=== PATIENT | male | born 1955 | race Caucasian/White ===

== ENCOUNTER 2019-09-03 11:29 | Inpatient (IN) | payer OTHER ==
[~2019-09-03] VITALS: Ht 175.3 cm; Wt 73.5 kg
[2019-09-03] VITALS (14 sets, daily range): BP systolic 88–127; BP diastolic 45–80
--- NOTE | 2019-09-03 11:37 | NUR ---
PT BIBRA 86 FROM THE BUS STOP C/O ETOH, NOTED FOREHEAD AND KNEE ABRASIONS, PT IS AAOX1, NOT IN RESPIRATORY DISTRESS, HOOKED TO MONITOR, KEPT RESTED AND COMFORTABLE,WILL CONTINUE TO MONITOR.
[2019-09-03] MEDS ORDERED: IV NS 0.9% 1,000 ML BAG IV ONE (12:00)
[2019-09-03 12:12] LABS: BASOPHILS # (AUTO) 0.2 /CMM (0.0-0.2); BASOPHILS % (AUTO) 1.6 % (0.0-2.0); EOSINOPHILS % (AUTO) 4.2 % (0.0-6.0); HEMATOCRIT 32 % (39-51); HEMOGLOBIN 10.7 g/dL (13.5-17.5); LYMPHOCYTES # (AUTO) 1.6 /CMM (0.8-4.8); LYMPHOCYTES % (AUTO) 15.8 % (20.0-44.0); MEAN CORPUSCULAR HGB CONC 34 g/dl (31.0-36.0); MEAN CORPUSCULAR VOLUME 108 fL (80-96); MONOCYTES # (AUTO) 0.9 /CMM (0.1-1.30); NEUTROPHILS # (AUTO) 7.1 /CMM (1.8-8.9); NEUTROPHILS % (AUTO) 69.4 % (43.0-81.0); PLATELET COUNT (AUTO) 436 /CMM (150-450); RED BLOOD CELL COUNT(AUTO) 2.95 MIL/uL (4.5-6.0); WHITE BLOOD COUNT (AUTO) 10.2 K/uL (4.3-11.0)
[2019-09-03 12:28] LABS: APPEARANCE,URINE Clear (CLEAR); BILIRUBIN,URINE Negative (NEGATIVE); BLOOD, URINE Trace-intact Ery/uL (NEGATIVE); COLOR,URINE Yellow (YELLOW); KETONES,URINE Negative (NEGATIVE); LEUKOCYTE ESTERASE ,URINE Negative (NEGATIVE); NITRITE, URINE Negative (NEGATIVE); PROTEIN,URINE Negative (NEGATIVE); UGLUCOSE Negative (NEGATIVE); UROBILINOGEN,URINE 0.2 EU/dL (0.2)
[2019-09-03 12:30] LABS: ALBUMIN 2.5 g/dL (3.4-5.0); BILIRUBIN,DIRECT 0.2 mg/dL (0.0-0.2); BILIRUBIN,TOTAL 0.2 mg/dL (0.2-1.0); CALCIUM, SERUM 8.6 mg/dL (8.5-10.1); CREATININE 0.7 mg/dL (0.6-1.3)
[2019-09-03 12:31] LABS: POTASSIUM 2.3 mmol/L (3.5-5.1); SALICYLATE 1.7 mg/dL (2.8-20.0)
[2019-09-03 12:40] LABS: BACTERIA,URINE Few /HPF (None Seen); RBC,URINE 0-2 /HPF (0-2); SQUAMOUS EPITHELIAL CELL,UR Few /HPF (None Seen); WBC,URINE 0-2 /HPF (0-3)
--- NOTE | 2019-09-03 12:50 | NUR ---
wheeled patient to CT.
--- NOTE | 2019-09-03 13:00 | NUR ---
patient came back from CT
--- NOTE | 2019-09-03 13:01 | NUR ---
connected to the monitor and pulse ox. Asleep, in no distress. Arousable.
[2019-09-03] MEDS ORDERED: IV PREMIX 0.45% NS + KCL 1,000 ML IV ONE (13:23)
[2019-09-03] MEDS ORDERED: LEVETIRACETAM (500MG) 500 MG in IV NS 0.9% 100 ML IV ONE (13:30)
--- NOTE | 2019-09-03 13:55 | NUR ---
called rn sup for [facility] bed waiting for assignment
--- NOTE | 2019-09-03 14:14 | NUR ---
called [facility] sup for ICU bed.
[2019-09-03] MEDS ORDERED: MAGNESIUM HYDROXIDE 30 ML UDC PO PRN (14:30)
[2019-09-03] MEDS ORDERED: MAG HYDROX/AL HYDROX/SIMETH 30 ML UDC PO PRN (14:30)
[2019-09-03] MEDS ORDERED: ONDANSETRON HCL/PF 4 MG/2 ML VIAL IVP PRN (14:30)
[2019-09-03] MEDS ORDERED: Folic acid 1 MG in IV D5W 50 ML IV SCH (14:30)
[2019-09-03] MEDS ORDERED: LABETALOL HCL IV 100MG VIAL IV ONE (14:30)
--- NOTE | 2019-09-03 14:31 | NUR ---
ICU 253
--- NOTE | 2019-09-03 14:49 | NUR ---
rerport given to Caroline RODRIGUEZ for frank.
[2019-09-03 15:05] LABS: CREATINE KINASE, TOTAL 143 U/L (39-308)
--- NOTE | 2019-09-03 15:30 | NUR ---
GRADER MEAT ADMITTING NOTES Rec'd report from Bran RODRIGUEZ. Pt admitted to ICU d/t ETOH intoxication & SDH, transferred via gurney. Pt A/O x 1, confused, drowsy. no SOB while on NC at 2lpm. SR on telemonitor. BP WNL. Afebrile. Wound photos taken & placed in the chart, wound consult ordered. IV line access on R AC G18 w/ 10/20 NS + 20meqs KCL x 200 cc/hr infusing well, RH G18 SL flushing well. Safety precaution in place w/ bed in lowest & locked pos. Call light placed w/in reach. Will cont to monitor & attend pt needs. Addendum: 09/03/19 at 1927 by RASHI VELASQUEZ RN 1927 Pt seen & examined by Dr. Day w/ orders to start on Keppra 500mg IV q12h.
[2019-09-03] MEDS: POTASSIUM CL. PREMIX PERIPHER. 50 ML IV SCH ×4 (15:40→18:47)
[2019-09-03] MEDS ORDERED: PIPERACILLIN /TAZOBACTAM 3.375 G in IV D5W 50 ML IV ONE (16:00)
[2019-09-03] MEDS: Folic acid 1 MG in IV D5W 50 ML IV SCH (16:02)
[2019-09-03] MEDS ORDERED: LABETALOL HCL IV 100MG VIAL IV PRN (16:30)
[2019-09-03] MEDS: Thiamine 100 MG in IV D5W 50 ML IV SCH (16:36)
[2019-09-03] MEDS: BLOOD SUGAR DIAGNOSTIC 1 EACH STRIP IN SCH ×4 (16:40→23:49)
[2019-09-03] MEDS: Z GUARD REMEDY 2 OZ OINT TP PRN (17:19)
[2019-09-03] MEDS: IV NS 0.9% 1,000 ML IV PRN (19:09)
--- NOTE | 2019-09-03 19:25 | NUR ---
ICU/RN NOTES PATIENT RECEIVED IN BED, RESTING COMFORTABLY AT THIS TIME, NO S/S OF ACUTE DISTRESS NOTED, BREATHING EVEN AND UNLABORED. NO SOB NOTED, PATIENT ON O2 2LPM VIA NC, SATURATION 98% AT THIS TIME, PATIENT ALERT AND ORIENTED X 1-2, DENIES ANY PAIN AT THIS TIME. IV SITES WITH NO S/S OF INFECTION, INFILTRATION, RUNNING WITH FLUIDS ORDERED, F/C IN PLACE, PATENT, DRAINING WELL WITH CLEAR YELLOW URINE. CLEAN AND DRY. SAFETY MAINTAINED, BED AT THE LOWEST LOCKED POSITION, CALL LIGHT WITHIN REACH, PATIENT ON TELE MONITORING WITH SINUS RHYTHM WITH BBB. WILL CONTINUE TO MONITOR PER PLAN OF CARE.
[2019-09-03] MEDS ORDERED: LEVETIRACETAM (500MG) 500 MG/5 ML VIAL IV ONE (20:32)
[2019-09-03] MEDS: LEVETIRACETAM (500MG) 500 MG in IV NS 0.9% 100 ML IV SCH (20:37)
[2019-09-03] MEDS: SIMVASTATIN 10 MG TABLET PO SCH (21:05)
--- NOTE | 2019-09-03 21:12 | NUR ---
LIPITOR NOT GIVEN DUE TO PATIENT NPO STATUS
--- NOTE | 2019-09-03 22:27 | NUR ---
MD MORROW MADE AWARE REGARDING PATIENT NIHSS SCORES WITH NO NEW ORDER AT THIS TIME.
[2019-09-03] MEDS: PIPERACILLIN /TAZOBACTAM 3.375 G in IV D5W 100 ML IV SCH (23:52)
[2019-09-04] VITALS (20 sets, daily range): BP systolic 100–150; BP diastolic 45–91
--- NOTE | 2019-09-04 01:37 | NUR ---
PATIENT IS AWAKE AND ALERT AND ORIENTED X2, ASKING FOR FOOD AT THIS TIME, PERFORMED NURSING SWALLOW EVAL USING ICE CHIPS AND THEN THIN LIQUID. , PATIENT OK TO SWALLOW. CALLED DR MORROW, RELAYED PATIENT CONDITION AND NURSING SWALLOW EVAL RESULTS, DR. MORROW WITH NEW ORDER FOR CARDIAC DIET. NOTED
[2019-09-04 04:24] LABS: BASOPHILS # (AUTO) 0.1 /CMM (0.0-0.2); EOSINOPHILS % (AUTO) 3.1 % (0.0-6.0); HEMATOCRIT 32 % (39-51); HEMOGLOBIN 10.8 g/dL (13.5-17.5); LYMPHOCYTES # (AUTO) 0.9 /CMM (0.8-4.8); LYMPHOCYTES % (AUTO) 6.7 % (20.0-44.0); MEAN CORPUSCULAR HGB CONC 34 g/dl (31.0-36.0); MEAN CORPUSCULAR VOLUME 107 fL (80-96); MONOCYTES % (AUTO) 7.4 % (2.0-12.0); NEUTROPHILS # (AUTO) 10.9 /CMM (1.8-8.9); NEUTROPHILS % (AUTO) 81.8 % (43.0-81.0); PLATELET COUNT (AUTO) 431 /CMM (150-450); RED BLOOD CELL COUNT(AUTO) 2.99 MIL/uL (4.5-6.0); WHITE BLOOD COUNT (AUTO) 13.4 K/uL (4.3-11.0)
[2019-09-04 05:04] LABS: CREATININE 0.6 mg/dL (0.6-1.3); MAGNESIUM 1.2 mg/dL (1.8-2.4); PHOSPHORUS 2.5 mg/dL (2.5-4.9)
[2019-09-04 05:17] LABS: THYROID STIMULATING HORMONE 1.146 uIU/mL (0.358-3.74)
--- NOTE | 2019-09-04 05:20 | NUR ---
LAB CALLED FOR CRITICAL LAB VALUE AT THIS TIME, POTASSIUM 2.7,PATIENT IN NO ACUTE DISTRESS, BREATHING EVEN AND UNLABORED. WILL CONTINUE TO MONITOR, CALLED DR. MORROW AT THIS TIME,
[2019-09-04 05:27] LABS: POTASSIUM 2.7 mmol/L (3.5-5.1)
--- NOTE | 2019-09-04 05:33 | NUR ---
DR. MORROW CALLED BACK AT THIS TIME, RELAYED PATIENT CRITICAL LAB RESULT AND CURRENT CONDITION, VITAL SIGNS WITH NEW ORDER TO GIVE PATIENT POTASSIUM 80MEQ PO X ONE DOSE. NOTED AND CARRIED OUT.
[2019-09-04] MEDS ORDERED: POTASSIUM CHLORIDE 20 MEQ TAB.PRT.SR PO ONE (06:00)
[2019-09-04] MEDS: BLOOD SUGAR DIAGNOSTIC 1 EACH STRIP IN SCH ×6 (06:30→22:01)
--- NOTE | 2019-09-04 06:49 | NUR ---
ICU/RN NOTES PATIENT REMAINED IN BED, RESTING COMFORTABLY AT THIS TIME, NO S/S OF ACUTE DISTRESS NOTED, BREATHING EVEN AND UNLABORED. NO SOB NOTED, PATIENT ON O2 2LPM VIA NC, SATURATION 92% AT THIS TIME, PATIENT IS GETTING MORE ALERT ORIENTED X 2-3 NOW, DENIES ANY PAIN AT THIS TIME. IV SITES WITH NO S/S OF INFECTION, INFILTRATION, RUNNING WITH FLUIDS ORDERED, F/C IN PLACE, PATENT, DRAINING WELL WITH CLEAR YELLOW URINE. ALL DUE MEDS GIVEN ORDERED, TOLERATED WELL. CLEAN AND DRY. SAFETY MAINTAINED, BED AT THE LOWEST LOCKED POSITION, CALL LIGHT WITHIN REACH, PATIENT ON TELE MONITORING WITH SINUS RHYTHM . WILL ENDORSE TO AM SHIFT NURSE FOR KRISTINE.
--- NOTE | 2019-09-04 07:10 | NUR ---
DANCE INSTRUCTOR INITIAL NOTES Rec'd pt on bed, more awake, A/O x 2. On NC at 2lpm, denies SOB. SR on telemonitor. Has R AC G18 w/ NS x 75 cc/hr & RH G18 SL. Has FC draining to BSB w/ yellowish UOP. Safety precaution in place w/ bed in lowest & locked pos. Call light placed w/in reach. Will cont to monitor & attend pt needs.
[2019-09-04] MEDS: PIPERACILLIN /TAZOBACTAM 3.375 G in IV D5W 100 ML IV SCH ×2 (07:53→17:26)
[2019-09-04] MEDS: PANTOPRAZOLE 40 MG VIAL IV SCH (08:02)
[2019-09-04] MEDS: NICOTINE PATCH (21MG) 21 MG PATCH.TD24 TD SCH (08:02)
[2019-09-04] MEDS: POTASSIUM CHLORIDE 20 MEQ TAB.PRT.SR PO SCH ×2 (08:02→09:03)
[2019-09-04] MEDS: Z GUARD REMEDY 2 OZ OINT TP PRN (08:03)
[2019-09-04] MEDS: IV NS 0.9% 1,000 ML IV PRN ×2 (08:58→22:01)
[2019-09-04] MEDS: LEVETIRACETAM (500MG) 500 MG in IV NS 0.9% 100 ML IV SCH ×2 (09:03→21:03)
--- NOTE | 2019-09-04 11:30 | NUR ---
Pt seen & examined by Molly FLOREZ, carried out new orders. VIKKI made aware re: T 100.4.
[2019-09-04] MEDS: Magnesium 1GM/D5W 100ML PREMIX 100 ML IV SCH ×4 (12:08→15:13)
[2019-09-04] MEDS: ACETAMINOPHEN 325 MG TABLET PO PRN (12:16)
--- NOTE | 2019-09-04 14:53 | NUR ---
Report given to Angelica RODRIGUEZ for KRISTINE. Pt will be transferred to [facility].
--- NOTE | 2019-09-04 14:53 | NUR ---
ICU/MACHINE TOOL TECHNICIAN INSTRUCTOR OF CARE REPORT RECEIVED FROM NURSE RASHI PT WAS ENDORSED TO CONTINUE CARE.
[2019-09-04] MEDS: Folic acid 1 MG in IV D5W 50 ML IV SCH (15:22)
--- NOTE | 2019-09-04 16:00 | NUR ---
SPA COORDINATORCLINICAL RESEARCH ADMINISTRATOR NOTES Pt transferred to [facility] rm 119/1 as ordered. Pt remains A/O x 2, not in any distress, no neurological changes noted. No SOB while on NC at 2lpm. Pt informed need sputum sample for respiratory culture, provided w/ sterile cup. IV line access kept patent & intact w/ no s/sx of infection/infiltration. All belongings sent w/ pt, nothing is missing. No new skin issues noted. Safety precaution kept in place at all times. Pt transferred to [facility] via bed via ACLS protocol. No concerns/issues identified during transfer.
[2019-09-04] MEDS: Thiamine 100 MG in IV D5W 50 ML IV SCH (16:43)
--- NOTE | 2019-09-04 19:25 | NUR ---
TD/RN AM SHIFT END NOTES ALL NEEDS MET. NO ACUTE CHANGE OF CONDITION NOTED SINCE PT WAS ENDORSED TO CONTINUE CARE LATE THIS AFTERNOON. PT ENDORSED TO PM NURSE TO CONTINUE CARE. CL WITHIN REACHED AND SAFETY MAINTAINED.
[2019-09-04] MEDS: SIMVASTATIN 10 MG TABLET PO SCH (21:03)
[2019-09-04] MEDS: LORAZEPAM INJ 2 MG/ML VIAL IV PRN (21:04)
[2019-09-05] VITALS (9 sets, daily range): BP systolic 126–154; BP diastolic 67–94
[2019-09-05] MEDS: PIPERACILLIN /TAZOBACTAM 3.375 G in IV D5W 100 ML IV SCH ×4 (00:01→23:23)
[2019-09-05 07:01] LABS: BASOPHILS # (AUTO) 0.1 /CMM (0.0-0.2); BASOPHILS % (AUTO) 0.8 % (0.0-2.0); EOSINOPHILS % (AUTO) 6.1 % (0.0-6.0); HEMATOCRIT 32 % (39-51); HEMOGLOBIN 10.8 g/dL (13.5-17.5); LYMPHOCYTES # (AUTO) 1.4 /CMM (0.8-4.8); LYMPHOCYTES % (AUTO) 10.4 % (20.0-44.0); MEAN CORPUSCULAR HGB CONC 34 g/dl (31.0-36.0); MEAN CORPUSCULAR VOLUME 106 fL (80-96); MONOCYTES # (AUTO) 0.9 /CMM (0.1-1.30); MONOCYTES % (AUTO) 6.5 % (2.0-12.0); NEUTROPHILS # (AUTO) 10.5 /CMM (1.8-8.9); NEUTROPHILS % (AUTO) 76.2 % (43.0-81.0); PLATELET COUNT (AUTO) 373 /CMM (150-450); RED BLOOD CELL COUNT(AUTO) 3.03 MIL/uL (4.5-6.0); WHITE BLOOD COUNT (AUTO) 13.8 K/uL (4.3-11.0)
[2019-09-05 07:11] LABS: CALCIUM, SERUM 8.5 mg/dL (8.5-10.1); CREATININE 0.7 mg/dL (0.6-1.3); MAGNESIUM 1.7 mg/dL (1.8-2.4); PHOSPHORUS 2.5 mg/dL (2.5-4.9); POTASSIUM 3.9 mmol/L (3.5-5.1)
--- NOTE | 2019-09-05 07:15 | NUR ---
RN note: Received patient in bed. Nurse rounds completed. Patient alert and oriented without complaints of pain. Safety measures in place. Call light within reach. IV site patent, clean, dry and intact.
[2019-09-05] MEDS: BLOOD SUGAR DIAGNOSTIC 1 EACH STRIP IN SCH ×4 (08:14→21:53)
[2019-09-05] MEDS: LEVETIRACETAM (500MG) 500 MG in IV NS 0.9% 100 ML IV SCH (08:28)
--- NOTE | 2019-09-05 08:29 | NUR ---
WOUND CARE CONSULT: PT PRESENTS WITH RT KNEE ABRASION WHICH IS TENDER, DRY ABRASIONS TO FOREHEAD, FACE AND RT ELBOW, LOWER LEG, PRESENT ON ADMISSION. RECOMMENDATIONS MADE FOR WOUND CARE. DISCUSSED WITH NURSING STAFF. PT REFUSED TO TURN FOR FULL SKIN ASSESSMENT OF BACK AND BUTTOCKS. PT CONTINENT AT THIS TIME WITH ISHAN. CURRENT CHRISTINE SCORE IS 18. WILL SEE PRN. EDMONDS IN AGREEMENT WITH PLAN OF CARE. Addendum: 09/05/19 at 0830 by AIDA GUO WNDNU Amended: Links added.
[2019-09-05] MEDS: PANTOPRAZOLE 40 MG VIAL IV SCH (08:35)
[2019-09-05] MEDS: NICOTINE PATCH (21MG) 21 MG PATCH.TD24 TD SCH (08:42)
[2019-09-05] MEDS: NEOMY SULF/BACITRAC ZN/POLY 15 GM TUBE TP SCH ×2 (09:16→17:06)
--- NOTE | 2019-09-05 12:02 | NUR ---
Social service consult requested by VIKKI Kwan for homelessness and ETOH. Pt. is a 60 year old male who was admitted to [facility] for subdural Hemorrhage. Pt. was brought in by ambulance from the bus stop with concern for alcohol intoxication. SW met with the pt. bedside. Pt. is alert and oriented x 4. Pt. has dry abrasions on his face and forehead. Pt. appears disheveled. Pt. is homeless and has been for the past 14 years. Pt. receives SSI but did not disclose as to how much he gets per month. Pt. sleeps in a park in [place]. SW offered pt. fdc placement, however pt. declined. Pt. stated, he is going to [place] once discharge because, " I have too many enemies here, I have turned in too many drug dealers." Pt. 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 Pt. is an alcoholic and has been drinking for the past 10 years. Pt's drink of choice is vodka. Pt. drinks 1/2 gallon of vodka or more daily, depending on how much money he has. Pt. states, the alcohol " calms me down." Pt. is requesting for a bus pass which will be provided to him upon discharge. Pt. was provided with the following homeless fdc/resources: [facility] located at [address] [place] [address] ; [facility], [address] ; [facility], [address] [facility] ; [facility] Homeless Resource Directory which includes food stamps, transitional housing, showers and hot meals etc; Mental Health clinics such as [facility] ; [facility] ; Health clinics;[facility] and Alcohol treatment centers such as [facility], ; [facility] Substance Abuse Hotline and [facility] . Homeless Patient waiver form was placed in the chart for pt. to sign upon discharge. Pt's MICHAEL Orozco was notified. Pt. will be provided a TAP card upon discharge.
[2019-09-05] MEDS: Magnesium 1GM/D5W 100ML PREMIX 100 ML IV SCH ×2 (12:03→13:18)
[2019-09-05] MEDS: IV NS 0.9% 1,000 ML IV PRN (12:04)
[2019-09-05] MEDS: FOLIC ACID 1 MG TABLET PO SCH (17:15)
[2019-09-05] MEDS: THIAMINE HCL 100 MG TABLET PO SCH (17:15)
--- NOTE | 2019-09-05 19:30 | NUR ---
RN NOTES, PATIENT IN BED, AWAKE A/O X4 ABLE T VERBALIZED NEEDS AND CONCERNS, NO SOB/ACUTE DISTRESS NOTED, AT THIS TIME, ON O2 2LPM VIA NC, BREATHING EVEN AND UNLABORED, SINUS RHYTHM ON TELE MONITOR HR IN 80S, IV SITES IN LEFT HAND AND LEFT AC PATENT AND INTACT, NO S/S OF INFECTION OR INFILTRATION, IV FLUIDS INFUSING WELL AND PATIENT TOLERATED WELL, F/C IN PLACE, PATENCY INTACT, DRAINING CLEAR YELLOW URINE BY GRAVITY, CLEAN AND DRY, ALL SAFETY MEASURES IN PLACED, ASPIRATION AD SEIZURE PRECAUTIONS IN PL PACED, BED AT THE LOWEST LOCKED POSITION, CALL LIGHT WITHIN REACH, WILL CONTINUE TO MONITOR CLOSELY.
[2019-09-05] MEDS: SIMVASTATIN 10 MG TABLET PO SCH (21:26)
[2019-09-05] MEDS: LEVETIRACETAM (250 MG) 250 MG TABLET PO SCH (21:26)
[2019-09-06] VITALS (8 sets, daily range): BP systolic 121–159; BP diastolic 69–97
[2019-09-06] MEDS: LORAZEPAM INJ 2 MG/ML VIAL IV PRN (03:54)
[2019-09-06] MEDS: IV NS 0.9% 1,000 ML IV PRN (06:05)
--- NOTE | 2019-09-06 06:45 | NUR ---
RN NOTES, PATIENT ASLEEP AT THIS TIME, BUT AROUSES TO VERBAL STIMULI, AT 2LPM VIA NC AT THIS TIME, WITH OPTIMAL O2 SAT LEVEL, NO SOB/ACUTE DISTRESS NOTED AT THIS TIME, SLEEP WELL MOST OF THE NIGHT, RESPOND TO NAME, NO CHANGE IN LOC DURING THE NIGHT, IDENTIFY HIMSELF, DATE OF , ON IVF AT 150ML/HR, BOTH RIGHT HAND AND RIGHT AC IV ACCESS PATENT AND INTACT, NO S/S OF INFILTRATION NOTED, NO SIGNIFICANT CHANGE IN CONDITION DURING THE NIGHT, BED YAIR IVF AT 150ML/HR, BOTH RIGHT ND LEFT AC IV ACCESS PATENT AND INTACT, NO S/S OF INFILTRATION NOTED, BED LOCKED AND LOW POSITION, BILATERAL S/R OF BED IN PLACED AD PADDED FOR SEIZURE PRECAUTIONS, ON ASPIRATION PRECAUTIONS WELL, ATIVAN ADMINISTERED QUALITY ASSURANCE CONSULTANT, PATIENT STATE FEELING ANXIOUS AND NOT SMOKING AND DRINKING FOR DAYS, AND BP ELEVATED, AFTER MEDICATION PATIENT CALM AND SLEEPING, AND BP GOT LOWER WELL, CALL LIGHT W/I REACH, WILL ENDORSE CONTINUITY OF CARE TO ONCOMING NURSE.
[2019-09-06 07:07] LABS: BASOPHILS # (AUTO) 0.2 /CMM (0.0-0.2); BASOPHILS % (AUTO) 1.2 % (0.0-2.0); EOSINOPHILS % (AUTO) 10.6 % (0.0-6.0); HEMATOCRIT 34 % (39-51); HEMOGLOBIN 11.2 g/dL (13.5-17.5); LYMPHOCYTES # (AUTO) 1.2 /CMM (0.8-4.8); MEAN CORPUSCULAR HGB CONC 33 g/dl (31.0-36.0); MEAN CORPUSCULAR VOLUME 107 fL (80-96); MONOCYTES # (AUTO) 0.8 /CMM (0.1-1.30); MONOCYTES % (AUTO) 6.5 % (2.0-12.0); NEUTROPHILS # (AUTO) 8.8 /CMM (1.8-8.9); NEUTROPHILS % (AUTO) 71.7 % (43.0-81.0); PLATELET COUNT (AUTO) 347 /CMM (150-450); RED BLOOD CELL COUNT(AUTO) 3.12 MIL/uL (4.5-6.0); WHITE BLOOD COUNT (AUTO) 12.3 K/uL (4.3-11.0)
[2019-09-06 07:31] LABS: CALCIUM, SERUM 8.5 mg/dL (8.5-10.1); CREATININE 0.6 mg/dL (0.6-1.3); MAGNESIUM 1.7 mg/dL (1.8-2.4); PHOSPHORUS 3.7 mg/dL (2.5-4.9); POTASSIUM 3.7 mmol/L (3.5-5.1)
[2019-09-06 07:56] LABS: EOSINOPHILS % (MANUAL) 11 % (0-4); LYMPHOCYTES % (MANUAL) 10 % (16-48); MONOCYTES % (MANUAL) 3 % (0-11.0); NEUTROPHILS % (MANUAL) 76 (42-76)
--- NOTE | 2019-09-06 08:00 | NUR ---
SUPERINTENDENT DISTRIBUTION NOTES RECEIVED PATIENT ON BED, SLEEPING BUT EASILY AROUSABLE TO VERBAL AND TACTILE STIMULI. ON TELE MONITOR 62 SR WITH PAC HR 82. F/C BY GRAVITY , YELLOW COLOR URINE. HAVING BREAKFAST FED BY NURSING STAFF. RIGHT AC HEPLOCK INTACT, FLUSHED WELL, ON IV FLUIDS ORDERED, BED ON LOCK AND LOWEST POSITION, SAFETY PRECAUTION IN PLACE, PADDED SIDE RAILS, DR. LARSEN DIRECTOR MEDICAL SCIENCE ON BED SIDE, AWARE OF PATIENT CONDITION, NO SOB. NEURO CHECK COMPLETED. WILL CONTINUE TO MONITOR
[2019-09-06] MEDS: FOLIC ACID 1 MG TABLET PO SCH (08:29)
[2019-09-06] MEDS: NICOTINE PATCH (21MG) 21 MG PATCH.TD24 TD SCH (08:29)
[2019-09-06] MEDS: THIAMINE HCL 100 MG TABLET PO SCH (08:30)
[2019-09-06] MEDS: PANTOPRAZOLE 40 MG VIAL IV SCH (08:30)
[2019-09-06] MEDS: LEVETIRACETAM (250 MG) 250 MG TABLET PO SCH ×2 (08:31→21:27)
[2019-09-06] MEDS: PIPERACILLIN /TAZOBACTAM 3.375 G in IV D5W 100 ML IV SCH ×2 (08:35→16:07)
[2019-09-06] MEDS: BLOOD SUGAR DIAGNOSTIC 1 EACH STRIP IN SCH ×4 (08:35→21:34)
[2019-09-06] MEDS: NEOMY SULF/BACITRAC ZN/POLY 15 GM TUBE TP SCH ×2 (08:43→16:01)
[2019-09-06] MEDS: Magnesium 1GM/D5W 100ML PREMIX 100 ML IV SCH ×2 (10:35→11:55)
--- NOTE | 2019-09-06 11:30 | NUR ---
COMPUTER TRAINING SPECIALIST NOTES ROUNDS MADE, CONTINUE IV FLUIDS, NOT IN DISTRESS
--- NOTE | 2019-09-06 15:41 | NUR ---
HOSIERY MENDER NOTES DOCTOR ON BED SIDE, NOTIFIED PATIENT IS COUGHING, ORDERED CHEST XRAY. KEPT BOTH FEET CLEAN AND DRY WITH [facility] ON BED SIDE
--- NOTE | 2019-09-06 15:55 | NUR ---
BEET END SUPERVISOR NOTES NOTED BP 159/[address] LATIF NOTIFIED , NO NEW ORDER NEEDED
[2019-09-06] MEDS ORDERED: FOLIC ACID 1 MG TABLET PO SCH (16:00)
[2019-09-06] MEDS ORDERED: THIAMINE HCL 100 MG TABLET PO SCH (16:00)
--- NOTE | 2019-09-06 18:56 | NUR ---
CLOSING RN NOTES PATIENT SITTING COMFORTABLY ON BED WATCHING TV, NOT IN DISTRESS, NO SOB, NO COUGH NOTED. ABLE TO FINISHED HIS DINNER 100% , KEPT CLEAN AND DRY. CALL LIGHT WITHIN REACH
--- NOTE | 2019-09-06 20:21 | NUR ---
recieved alert and orientated smiling and talking in good spirits. watching tv. verbalizing his needs. call light within reach bed alarm on
[2019-09-06] MEDS: SIMVASTATIN 10 MG TABLET PO SCH (21:27)
[2019-09-07] VITALS: BP 138/89
[2019-09-07] MEDS: PIPERACILLIN /TAZOBACTAM 3.375 G in IV D5W 100 ML IV SCH ×3 (00:31→16:00)
[2019-09-07] MEDS: ACETAMINOPHEN 325 MG TABLET PO PRN (01:16)
[2019-09-07 05:20] VITALS: BP 132/68
--- NOTE | 2019-09-07 05:26 | NUR ---
ENDING NOTES: SLEPT RESTLESS, NOTED HE TOSSED AND TURNED FREQUENTLY. HE IS ALERT ENJOYS WATCHING TV. SATS 94 - 97 % WITH 02 AT 2 LITERS. HE REMOVES THE N/C FREQ AND NOTED SATS AT 93 %HE ENJOYS EATING SNACKS. ASP PRECAUTIONS. HE SEEMS TO GOBBLE THE FOOD FAST AND DRINK THE FLUIDS FAST, INSTRUCTED HIM TO SLOW DOWN. NO DIZZINESS OR C/O THIS SHIFT. NEURO CHECKS DONE, NO DOUBLE VISION OR BLURRED VISION AND PUPILS REACTED EAQUAL TO LIGHT
[2019-09-07 07:15] LABS: BASOPHILS # (AUTO) 0.1 /CMM (0.0-0.2); BASOPHILS % (AUTO) 0.6 % (0.0-2.0); EOSINOPHILS % (AUTO) 10.9 % (0.0-6.0); HEMATOCRIT 36 % (39-51); HEMOGLOBIN 12.1 g/dL (13.5-17.5); LYMPHOCYTES # (AUTO) 1.5 /CMM (0.8-4.8); LYMPHOCYTES % (AUTO) 13.2 % (20.0-44.0); MEAN CORPUSCULAR HGB CONC 34 g/dl (31.0-36.0); MEAN CORPUSCULAR VOLUME 107 fL (80-96); MONOCYTES # (AUTO) 0.8 /CMM (0.1-1.30); NEUTROPHILS # (AUTO) 7.7 /CMM (1.8-8.9); NEUTROPHILS % (AUTO) 68.3 % (43.0-81.0); PLATELET COUNT (AUTO) 354 /CMM (150-450); RED BLOOD CELL COUNT(AUTO) 3.38 MIL/uL (4.5-6.0); WHITE BLOOD COUNT (AUTO) 11.3 K/uL (4.3-11.0)
--- NOTE | 2019-09-07 07:25 | NUR ---
POMOLOGY TEACHER OPENING NOTE RECEIVED REPORT FROM [facility] SHIFT NURSE. PT AWAKE IN BED, ALERT AND ORIENTED X 4, ON 02 VIA NC 3L/MIN, SATURATING WELL, RESPIRATIONS EVEN AND UNLABORED, NO SIGNS OF RESPIRATORY DISTRESS NOTED. IV SITE ON RIGHT AC INTACT, PATENT. NS INFUSING AT 75CC/HR, NO SIGNS OF INFILTRATION NOTED. ON CLAIMS COUNSEL SINUS RHYTHM. BED IN LOW POSITION, LOCKED, CALL LIGHT WITHIN REACH. SAFETY PRECAUTIONS IN PLACE, SEIZURE PRECAUTIONS IN PLACE. INTRODUCED SELF TO PT AND DISCUSSED PLAN OF CARE.
[2019-09-07] MEDS: BLOOD SUGAR DIAGNOSTIC 1 EACH STRIP IN SCH ×2 (07:44→12:08)
[2019-09-07 07:46] LABS: CREATININE 0.7 mg/dL (0.6-1.3); MAGNESIUM 1.7 mg/dL (1.8-2.4); POTASSIUM 3.9 mmol/L (3.5-5.1)
[2019-09-07 08:00] VITALS: BP 140/75
[2019-09-07] MEDS: NICOTINE PATCH (21MG) 21 MG PATCH.TD24 TD SCH ×2 (08:11→08:19)
[2019-09-07] MEDS: LEVETIRACETAM (250 MG) 250 MG TABLET PO SCH (08:11)
[2019-09-07] MEDS: PANTOPRAZOLE 40 MG VIAL IV SCH (08:11)
[2019-09-07] MEDS: THIAMINE HCL 100 MG TABLET PO SCH (08:12)
[2019-09-07] MEDS: NEOMY SULF/BACITRAC ZN/POLY 15 GM TUBE TP SCH (08:12)
[2019-09-07] MEDS: FOLIC ACID 1 MG TABLET PO SCH (08:12)
[2019-09-07 12:00] VITALS: BP 109/69
[2019-09-07] MEDS ORDERED: LEVE250T2 PO (14:28)
--- NOTE | 2019-09-07 15:07 | NUR ---
SW met with the pt. to discuss discharge plan. Pt. initially stated to SW he did not want long term placement, however today, pt. told the nurse he wants long term placement. SW met with the pt. bedside. SW offered pt. long term placement again, however pt. informed SW he wants to go to the bus stop where paramedics picked him up from because his belongings are there in a cart. Pt. informed SW he will make his own arrangements to the long term from the following resources that were provided to the pt: [facility] located at [address] [facility] ; . [facility] [place], [address], [place] ; [facility], [address], [place] ; [facility] Homeless Resource Directory which includes food stamps, transitional housing, showers and hot meals etc; Mental Health clinics such as [facility] ; [facility] ; Health clinics;[facility] and Alcohol treatment centers such as [facility] [place], ; [facility] Substance Abuse Hotline and [facility] . Pt. was provided with a TAP card, Homeless Patient Waiver form was signed by the pt. and placed in pt's chart.
--- NOTE | 2019-09-07 15:09 | NUR ---
OLMSTEAD CATHETER REMOVED, IV REMOVED, PT TOLERATED WELL.
--- NOTE | 2019-09-07 15:20 | NUR ---
PT VOIDED SUCCESSFULLY AFTER OLMSTEAD CATHETER REMOVAL
--- NOTE | 2019-09-07 15:49 | NUR ---
PT REFUSED TO USE WALKER AN ASSISTIVE DEVICE
--- NOTE | 2019-09-07 15:55 | NUR ---
PT DISCHARGED FROM UNIT. ALL DISCHARGE PAPERWORK SIGNED AND EXPLAINED, PRESCRIPTION GIVEN TO PT, TAP CARD GIVEN. PT IS DRESSING IN BED AND EATING A MEAL BEFORE HE LEAVES THE UNIT. [address] NOT ADMINISTERED DUE OT PT BEING DISCHARGED.
[2019-09-07 16:00] VITALS: BP 117/81
--- NOTE | 2019-09-07 16:29 | NUR ---
LEFT UNIT IN STABLE CONDITION
== END 2019-09-07 16:29 | disposition home or self-care (01) | DRG 55 ==
LOC: ER 11:30 → ICU 14:51 → EDBD 14:51 → TELE-TD 09-04 15:53 → TELE1 09-05 14:21
PROVIDERS: ADMIT Registered Nurse; ATTEND Hospitalist
DX: S06.5X9A Traumatic subdural hemorrhage with loss of consciousness of unspecified duration, initial encounter (principal); J69.0 Pneumonitis due to inhalation of food and vomit; G92 Toxic encephalopathy; E44.0 Moderate protein-calorie malnutrition; E87.2 Acidosis; M62.82 Rhabdomyolysis; I48.91 Unspecified atrial fibrillation; B35.1 Tinea unguium; S50.819A Abrasion of unspecified forearm, initial encounter; D53.9 Nutritional anemia, unspecified; D72.829 Elevated white blood cell count, unspecified; E87.6 Hypokalemia; S02.40EA Zygomatic fracture, right side, initial encounter for closed fracture; F10.129 Alcohol abuse with intoxication, unspecified; S80.219A Abrasion, unspecified knee, initial encounter; Z59.0 Homelessness; Y92.521 Bus station as the place of occurrence of the external cause; I10 Essential (primary) hypertension; W19.XXXA Unspecified fall, initial encounter; F19.10 Other psychoactive substance abuse, uncomplicated; Z72.0 Tobacco use; I45.10 Unspecified right bundle-branch block; L85.3 Xerosis cutis; I49.1 Atrial premature depolarization; M48.12 Ankylosing hyperostosis [Forestier], cervical region; S91.319A Laceration without foreign body, unspecified foot, initial encounter; X58.XXXA Exposure to other specified factors, initial encounter; Y92.9 Unspecified place or not applicable
CPT/HCPCS: 36415; 70450-TC; 71045-TC; 72125-TC; 73564-TC; 80048-TC; 80061-TC; 80076-TC; 80305; 81000-TC; 82550-TC; 82962-TC; 83605-TC; 83735-TC; 84100-TC; 84132-TC; 84443-TC; 85025-TC; 85730-TC; 86850-TC; 87040-TC; 87070-TC; 87081-TC; 92611-TC; 93307-TC; 97116-TC; 97530-TC; 97535-TC; C9113; G0378; G0480; J1953; J2060; J2543; J3411; J3475; J3480; J3490; J7030; J7050; J7060

== ENCOUNTER 2019-09-07 22:41 | Emergency (ER) | payer OTHER ==
[~2019-09-07] VITALS: Ht 167.6 cm; Wt 74.8 kg
[~2019-09-07 22:41] MED LIST: LEVE250T2 PO
--- NOTE | 2019-09-07 22:41 | NUR ---
"C/O R FACIAL ABRASION, ETOH, UNK KO" PT TO BED 12, -SOB, PT ON MONITOR, VSS ,KAMAR SHERIFF
--- NOTE | 2019-09-08 00:42 | NUR ---
PT IN BED, SLEEPING, EASILY AROUSABLE, PT ON OMONITOR -SOB, VS UPDATED.
--- NOTE | 2019-09-08 02:10 | NUR ---
PT IN BED SLEEPING. NAD NOTED.
--- NOTE | 2019-09-08 05:57 | NUR ---
Patient discharged to home in stable condition. Written and verbal after care instructions given. Patient verbalizes understanding of instruction. Pt ambulatory with a steady gait. Homeless discharge waiver signed by pt.
[2019-09-08 05:58] VITALS: BP 74/145
== END 2019-09-08 05:58 | disposition home or self-care (01) ==
LOC: ER 22:41
DX: S06.5X0A Traumatic subdural hemorrhage without loss of consciousness, initial encounter (principal); F10.129 Alcohol abuse with intoxication, unspecified; Z59.0 Homelessness; Z79.899 Other long term (current) drug therapy; W19.XXXA Unspecified fall, initial encounter; Y93.89 Activity, other specified; Y92.811 Bus as the place of occurrence of the external cause; Y99.8 Other external cause status; Y90.9 Presence of alcohol in blood, level not specified
CPT/HCPCS: 70450-TC